=== PATIENT | female | born 1965 | race Caucasian/White ===

== ENCOUNTER 2020-07-18 11:37 | Emergency (ER) | payer SELFPAY ==
[~2020-07-18] VITALS: Ht 160 cm; Wt 91.0 kg
[2020-07-18] MEDS ORDERED: HYDROCODONE/ACETAMINOPHEN 5/325MG TABLET PO STA (12:16)
[2020-07-18] MEDS ORDERED: T3 PO (13:55)
[2020-07-18] MEDS ORDERED: ONDANSETRON HCL 4MG/2ML INJ IM STA (13:58)
[2020-07-18 15:08] VITALS: BP 167/95
== END 2020-07-18 15:09 | disposition home or self-care (01) ==
LOC: ER 11:43
DX: S80.02XA Contusion of left knee, initial encounter (principal); M25.562 Pain in left knee; M25.561 Pain in right knee; J45.909 Unspecified asthma, uncomplicated; W01.0XXA Fall on same level from slipping, tripping and stumbling without subsequent striking against object, initial encounter; Y93.89 Activity, other specified; Y92.512 Supermarket, store or market as the place of occurrence of the external cause; Z88.6 Allergy status to analgesic agent
CPT/HCPCS: 73562; 96372; 99283; J2405